=== PATIENT | female | born 1960 | race Caucasian/White ===

== ENCOUNTER 2020-12-08 22:37 | Emergency (ER) | payer MEDICARE, MEDICAID ==
[2020-12-08] MEDS ORDERED: Aspirin Chewable 81 MG TAB ONE (23:32)
== END 2020-12-08 23:14 | disposition home or self-care (01) ==
LOC: BURERS 22:37
DX: M85.671 Other cyst of bone, right ankle and foot (principal); E78.5 Hyperlipidemia, unspecified; E78.00 Pure hypercholesterolemia, unspecified; F17.210 Nicotine dependence, cigarettes, uncomplicated
CPT/HCPCS: 99281

== ENCOUNTER 2024-01-04 19:26 | Emergency (ER) | payer OTHER, MEDICAID ==
[2024-01-04] MEDS ORDERED: Cephalexin 250 MG CAP ONE (20:02)
== END 2024-01-04 20:14 | disposition home or self-care (01) ==
LOC: BURERS 19:26
DX: S60.460A Insect bite (nonvenomous) of right index finger, initial encounter (principal); F17.210 Nicotine dependence, cigarettes, uncomplicated; W57.XXXA Bitten or stung by nonvenomous insect and other nonvenomous arthropods, initial encounter
CPT/HCPCS: 99282